=== PATIENT | female | born 1950 | race Hispanic/Latino ===

== ENCOUNTER 2021-07-11 14:43 | Outpatient (CLI) | payer MEDICARE, MEDICAID, SELFPAY ==
--- NOTE | ~2021-07-11 | CT_ITS ---
EXAMINATION: CT abdomen pelvis wo/w con EXAM DATE: 07/11/2021 15:31 INDICATION: Right kidney cancer, nephrectomy. TECHNIQUE: Spiral CT of the abdomen without contrast followed by both abdomen and pelvis with 100 cc intravenous Omnipaque 350. Axial, coronal and sagittal images of the abdomen and pelvis were reviewe d. The dose-length product (DLP) for this examination was 558.17 mGy-cm. The exposure was tailored according to patient size (auto mA exposure control), and iterative reconstruction (ASIR) was used as additional dose reduction technique. There is no prior study for comparison. FINDINGS: Pancreatic tail cystic mass with several thin septations inside, measuring 1.6 x 3.2 cm, un changed. The differential diagnosis includes pseudocyst, intraductal papillary mucinous neoplasm (IPM N), mucinous cystic neoplasm (MCN), serous cystadenoma and neuroendocrine tumor. There is hepatic steatosis without suspicious focal lesion identified. Spleen, adrenal glands are unr emarkable. Gallbladder is unremarkable. No biliary obstruction. Surgical changes from right-sided n ephrectomy, unremarkable nephrectomy bed. No left-sided hydronephrosis, homogeneously enhancing left kidney. There may be small amount of pelvic prolapse. The uterus is retroverted and morphologically n ormal. The bladder is unremarkable. There is no retroperitoneal or pelvic lymphadenopathy. There is mild scattered arteriosclerotic disease. There is right-sided abdominal wall hernia repair. There are no findings to suggest appendicitis. There is moderate scattered colonic diverticulosis. T here is no adjacent inflammatory change to suggest diverticulitis. The stomach and small bowel are un remarkable. There is expected amount of colonic stool. No free intraperitoneal gas. The heart is normal in size. There are no pericardial or pleural effusions. The lung bases are unremarkable. T here are no osteoblastic or osteolytic lesions identified. IMPRESSION: 1. Stable pancreatic tail cystic mass. Consider 2 year follow-up CT abdomen with contrast. 2. Moderate colonic diverticulosis. 3. Hepatic steatosis. 4. No evidence of metastatic disease. Reviewed, dictated and finalized at location B. ING MACHINE REPAIRER IMPRESSION: 1. Stable pancreatic tail cystic mass. Consider 2 year follow-up CT abdomen wi th contrast. 2. Moderate colonic diverticulosis. 3. Hepatic steatosis. 4. No evidence of metastatic disease.
--- NOTE | ~2021-07-11 | XR_ITS ---
EXAMINATION: XR chest 2V DATE: 07/11/2021 15:16 INDICATION: Malignant neoplasm of right kidney. TECHNIQUE: Frontal and lateral views of the chest were obtained. COMPARISON: Chest 2 views 05/04/2019, CT abdomen and pelvis 07/11/2021 FINDINGS: The chest demonstrates clear lungs without pneumonia, pleural effusion, or pneumothorax. Th e heart size is normal. There are surgical clips from right nephrectomy. IMPRESSION: 1. No evidence of metastatic disease. Reviewed, dictated and finalized at location A. ER POWDER BLENDER
[2021-07-11 15:22] LABS: Estimated Glomerular Filt Rate 54
== END 2021-07-11 14:44 | disposition home or self-care (01) ==
PROVIDERS: PCP Family Medicine; Visit Provider Urology
DX: C64.1 Malignant neoplasm of right kidney, except renal pelvis (principal); K57.30 Diverticulosis of large intestine without perforation or abscess without bleeding; K76.0 Fatty (change of) liver, not elsewhere classified
CPT/HCPCS: 71046; 74178; Q9967

== ENCOUNTER 2021-12-08 20:54 | Emergency (ER) | payer MEDICARE, MEDICAID, SELFPAY ==
[2021-12-08] VITALS (8 sets, daily range): BP systolic 137–159; BP diastolic 70–82; PULSE 70–79; RESP 12–19; TEMP 36.4; O2SAT 95–99
--- NOTE | ~2021-12-08 | CT_ITS ---
EXAMINATION: CT brain wo con DATE: 12/08/2021 22:40 INDICATION: Headache and dizziness for 3 days. Nausea and vomiting. TECHNIQUE: Computed tomography (CT) of the head was performed without intravenous contrast. The mA wa s adjusted according to patient size. Iterative reconstruction technique was employed. Exam dose: 60 5.33 mGy-cm total exam DLP. COMPARISON: None FINDINGS: No intracranial mass lesion or hemorrhage or cerebrovascular accident. No midline shift or mass effect. Normal ventricular size. Bilateral carotid siphon internal carotid artery calcifications. Nonspecific diminished attenuation c erebral white matter is likely due to chronic small vessel ischemic changes. No orbital mass lesion. No subdural or epidural hematoma. No fracture or bone destruction of the cranial vault. Included paranasal sinuses and mastoid air cell s are unremarkable. IMPRESSION: No significant abnormality Reviewed, dictated and finalized at Location A. Reviewed, dictated and finalized at location A. IMPRESSION: No significant abnormality
[2021-12-08 21:07] LABS: Glucose Point of Care 184 mg/dl (65-105)
--- NOTE | 2021-12-08 21:13 | ECG_ITS ---
Measurements Intervals [place] Rate: 74 P: 21 VT: 160 QRS: -8 QRSD: 113 T: -9 QT: 403 QTc: 448 Interpretive Statements SINUS RHYTHM LEFT VENTRICULAR HYPERTROPHY ST AND T-WAVE ABNORMALITY, CONSIDER ISCHEMIA ABNORMAL ECG NO PREVIOUS ECG AVAILABLE FOR COMPARISON Electronically Signed On 12-09-2021 11:45:46 CDT by Shaheen Peter M.D.
[2021-12-08 21:55] LABS: Basophils Percent Auto 0.3 % (0.2-1.2); Eosinophils Absolute Auto 0.1 K/mm3 (0-0.3); Eosinophils Percent Auto 0.7 % (0-4.4); Hematocrit 37.4 % (37.0-47.0); Hemoglobin 11.8 g/dL (12.0-15.0); Immature Granulocyte Absolute 0.08 K/mm3 (0.00-0.031); Immature Granulocyte Percent A 0.6 % (0-0.5); Lymphocytes Absolute Auto 1.83 K/mm3 (0.9-3.2); Lymphocytes Percent Auto 14.4 % (18.3-44.2); Mean Corpuscular HGB Conc 31.6 g/dl (32-36); Mean Corpuscular Hemoglobin 27.8 pg (26-34); Mean Corpuscular Volume 88.2 fl (80-100); Monocytes Absolute Auto 0.4 K/mm3 (0.1-0.6); Monocytes Percent Auto 3.1 % (2.6-8.5); Neutrophils Absolute Auto 10.3 K/mm3 (1.3-6.7); Neutrophils Percent Auto 80.9 % (45.5-73.1); Platelet Count Result 276 k/mm3 (150-375); Red Blood Count 4.24 M/mm3 (4.2-5.4); Red Cell Distribution Width 14.5 % (11.5-14.5); White Blood Count 12.7 K/mm3 (4.5-10.0)
--- NOTE | 2021-12-08 22:17 | ED.DIZZY ---
HPI - Dizziness General Chief Complaint: Dizziness <SONG Lobo Last Filed: 12/09/21 02:17> Stated Complaint: dizzy, weak <SONG Lobo Last Filed: 12/09/21 02:17> Time Seen by Provider: 12/08/21 21:08 <SONG Lobo Last Filed: 12/09/21 02:17> Source: patient and interpreter translator <SONG Lobo Last Filed: 12/09/21 02:17> History of Present Illness HPI Narrative: Patient is a 71-year-old, slovak-speaking female with a history of diabetes who presents to the emergency room for evaluation of dizziness over the past 4 days. Patient states the dizziness is most noticeable when she stands up after laying down for long periods of time, occasionally reports a room spinning sensation. She states today she felt nauseous and vomited 4 times, and additionally she has developed a diffuse headache and some ringing in the right ear. Vomit has been nonbloody and nonbilious. She denies any abdominal pain, changes in her stools, blood in her stool, visual changes. She reports some difficulty controlling her blood glucose over the past couple weeks, but her numbers at home have significantly improved after recently starting Jardiance 2 weeks ago. <SONG Lobo Last Filed: 12/09/21 02:17> Related Data Home Medications: Home Medications Medication Instructions Recorded Confirmed alendronate mg PO 12/08/21 atorvastatin 12/08/21 diclofenac sodium PO 12/08/21 glipizide mg 12/08/21 linagliptin [Tradjenta] mg 12/08/21 pantoprazole PO 12/08/21 ropinirole mg 12/08/21 trazodone 12/08/21 <SONG Lobo Last Filed: 12/09/21 02:17> Allergies/Adverse Reactions: Allergies Allergy/AdvReac Type Severity Reaction Status Date / Time Iodinated Contrast Media Allergy Unknown Rash Verified 12/08/21 21:32 Contrast Media Allergy Severe RASH Uncoded 12/02/19 09:46 <Adeline Yang PA-C - Last Filed: 12/09/21 02:17> [facility] Family History Family History: Family History (System 12/02/19 @ 09:46 by Rox Padron) Other Diabetes mellitus <Adeline Yang PA-C - Last Filed: 12/09/21 02:17> Social History Social History: Social History (System 12/02/19 @ 09:46 by Rox Padron) Smoking status: Never smoker Alcohol intake: never <Adeline Yang PA-C - Last Filed: 12/09/21 02:17> Exam Narrative: APPEARANCE: Well appearing, no pain in distress, well-nourished. Head normocephalic and atraumatic. EYES: Fatigable, horizontal nystagmus with EOMs. PERRLA/EOMI, conjunctivae clear NOSE: No nasal drainage EARS: External ear normal in appearance THROAT: Oropharynx is clear. Mucous membranes are moist. NECK: Supple. No adenopathy, no masses. RESPIRATORY: Airway patent, respirations nonlabored. Clear to auscultation bilaterally, no rales, rhonchi, wheezing. CARDIOVASCULAR: Regular rate and rhythm without murmurs, rubs, or gallops. ABDOMINAL: Normoactive bowel sounds. Soft, nontender, nondistended. No rebound tenderness or guarding. MUSCULOSKELETAL: Extremities are warm and well-perfused. Moves all extremities well. No edema. NEURO: Cranial nerves II through XII intact. Hints exam negative. Normal speech. No focal neurologic deficits. Finger to nose normal. No ataxia with gait. SKIN: Skin is warm and dry. No rashes. PSYCHIATRIC: Normal affect/mood. <Adeline Yang PA-C - Last Filed: 12/09/21 02:17> Course MARKETING SALES MANAGER/PA Physician Supervision Patient was seen and evaluated by me. Patient presents with symptoms consistent with vertigo but is not toxic or septic in appearance. Workup reviewed. Nonfocal neuro exam. I concur with the evaluation and treatment plan as outlined by the ANGEL working under my supervision. <Luis Cortez DO - Last Filed: 01/15/22 12:17> Vital Signs Vital signs: Vital Signs Temperature 97.6 F 12/08/21 20:58 Pulse Ra
--- NOTE | 2021-12-08 22:32 | PC.NURSE ---
Patient taken to CT via stretcher.
[2021-12-08] MEDS: ONDANSETRON HCL ODT 4 MG TABLET PO (22:41)
[2021-12-08 22:43] LABS: Alanine Aminotransferase 55 U/L (4-35); Albumin Level 4.2 g/dL (3.5-5.1); Alkaline Phosphatase 119 U/L (38-126); Anion Gap 10 mmol/L (8-16); Aspartate Amino Transferase 42 U/L (14-36); Bilirubin,Total 0.2 mg/dL (0.2-1.3); Blood Urea Nitrogen 21 mg/dL (7-17); Carbon Dioxide 25 mmol/L (22-30); Chloride 102 mmol/L (98-107); Estimated CRCL calculation 51 ml/min; Estimated Glomerular Filt Rate > 60; Glucose 165 mg/dL (65-110); Potassium 4.1 mmol/L (3.4-5.0); Sodium 137 mmol/L (137-145)
[2021-12-08 22:54] LABS: Troponin I < 0.012 ng/mL (0.000-0.034)
[2021-12-08] MEDS: ACETAMINOPHEN 325 MG TABLET 650 MG PO (23:16)
[2021-12-08 23:17] LABS: Add Urine Microscopic? YES; Appearance Urine Clear (Clear); Bilirubin Urine Negative (Negative); Blood Urine Negative (Negative); Color Urine Yellow (Yellow); Glucose Urine UA 3+ mg/dL (Negative); Ketones Urine Negative (Negative); Leukocyte Esterase Ur Negative LEU/UL (Negative); Nitrate Urine Negative (Negative); Protein Urine Negative (Negative); Specific Grav Ur 1.015 (1.001-1.035); Urobilinogen Urine 0.2 mg/dL (<2.0); pH Urine 8.5 (5.0-9.0)
[2021-12-08 23:20] LABS: Mucus Urine Rare /lpf; RBC Urine 0-2 /hpf (0-2); WBC Urine 0-3 /hpf
[2021-12-09] VITALS (15 sets, daily range): BP systolic 113–127; BP diastolic 57–71; PULSE 67–78; RESP 14–21; TEMP 36.4; O2SAT 94–98
[2021-12-09] MEDS: MECLIZINE HCL 12.5 MG TABLET PO (00:56)
[2021-12-09 02:22] LABS: Troponin I < 0.012 ng/mL (0.000-0.034)
== END 2021-12-09 02:44 | disposition home or self-care (01) ==
PROVIDERS: Physician Assistant; Emergency Provider Emergency Medicine; PCP Family Medicine
DX: R42 Dizziness and giddiness (principal); R94.31 Abnormal electrocardiogram [ECG] [EKG]; I51.7 Cardiomegaly
CPT/HCPCS: 36415; 70450; 80053; 81001; 82948; 84484; 85025; 93005; 99284; A9270

== ENCOUNTER 2022-04-21 15:33 | Emergency (ER) | payer MEDICARE, MEDICAID, SELFPAY ==
[2022-04-21 15:42] VITALS: BP 121/69; PULSE 81; RESP 16; TEMP 36.3; O2SAT 100
--- NOTE | 2022-04-21 18:21 | ED.GENADULT ---
HPI - General Adult General Chief complaint: Neck Pain/Injury Stated complaint: neck pain Time Seen by Provider: 04/21/22 17:32 History of Present Illness HPI narrative: 72-year-old female presented to the emergency department for evaluation of a cyst on her left shoulder. Patient states that has been present for a long period of time but was concerned because it had been more painful over the last few weeks. Related Data Home Medications Medication Instructions Recorded Confirmed alendronate 70 mg tablet mg PO 12/08/21 atorvastatin 20 mg tablet 12/08/21 diclofenac sodium 75 mg PO 12/08/21 tablet,delayed release glipizide 10 mg tablet mg 12/08/21 linagliptin 5 mg tablet (Tradjenta) mg 12/08/21 pantoprazole 40 mg tablet,delayed PO 12/08/21 release ropinirole 0.5 mg tablet mg 12/08/21 trazodone 100 mg tablet 12/08/21 Allergies Allergy/AdvReac Type Severity Reaction Status Date / Time Iodinated Contrast Media Allergy Unknown Rash Verified 12/08/21 21:32 Contrast Media Allergy Severe RASH Uncoded 12/02/19 09:46 Review of Systems Review of Systems: CONSTITUTIONAL: Denies fever, chills, or sweats. EYES: Denies visual changes, redness, or discharge. ENT: Denies rhinorrhea, congestion, sore throat, or otalgia. CARDIOVASCULAR: Denies chest pain, palpitations, or edema. RESPIRATORY: Denies cough or dyspnea. GASTROINTESTINAL: Denies abdominal pain, nausea, vomiting, or diarrhea. GENITOURINARY: Denies dysuria or hematuria. SKIN: Cyst on left shoulder MUSCULOSKELETAL: Denies back pain, joint pain, or myalgia. NEUROLOGIC: Denies headache, numbness, or weakness. [facility] Family History Family History (System 12/02/19 @ 09:46 by Rox Padron) Other Diabetes mellitus Social History Social History (System 12/02/19 @ 09:46 by Rox Padron) Smoking status: Never smoker Alcohol intake: never Exam Narrative: APPEARANCE: Well appearing, no pain, no distress, well-nourished. HEAD: normocephalic, atraumatic. EYES: PERRLA/EOMI, conjunctivae clear. NOSE: Normal no drainage EARS:TMS clear with good light reflex. MUSCULOSKELETAL: Moves all extremities. Strength/ROM intact, No edema, No calf tenderness. NEURO: Alert. Cranial nerves II through XII intact. Grossly intact SKIN: Warm, dry. Normal Color. Suspected fatty cyst on left shoulder. No localized erythema. No tenderness to palpation. No fluctuance. Course Course Emergency Course: Patient's son acted as mechanical applications engineer and declined the use of the translating iPad. Suspect a lipoma. No suspicion for abscess. Patient was referred to plastic surgery for definitive treatment and removal of the suspected lipoma. Patient and family were comfortable to plan for discharge and close follow-up. Vital Signs Vital signs: Vital Signs Temperature 97.3 F L 04/21/22 15:42 Pulse Rate 81 04/21/22 15:42 Respiratory Rate 16 04/21/22 15:42 Blood Pressure 121/69 04/21/22 15:42 Pulse Oximetry 100 04/21/22 15:42 Oxygen Delivery Room Air 04/21/22 15:42 Temperature 97.3 F L 04/21/22 15:42 Pulse Rate 81 04/21/22 15:42 Respiratory Rate 16 04/21/22 15:42 Blood Pressure 121/69 04/21/22 15:42 Pulse Oximetry 100 04/21/22 15:42 Oxygen Delivery Room Air 04/21/22 15:42 Medical Decision Making Vital Signs Vital Signs: Vital Signs Temperature 97.3 F L 04/21/22 15:42 Pulse Rate 81 04/21/22 15:42 Respiratory Rate 16 04/21/22 15:42 Blood Pressure 121/69 04/21/22 15:42 Pulse Oximetry 100 04/21/22 15:42 Oxygen Delivery Room Air 04/21/22 15:42 Temperature 97.3 F L 04/21/22 15:42 Pulse Rate 81 04/21/22 15:42 Respiratory Rate 16 04/21/22 15:42 Blood Pressure 121/69 04/21/22 15:42 Pulse Oximetry 100 04/21/22 15:42 Oxygen Delivery Room Air 04/21/22 15:42 Discharge Plan Discharge Clinical Impression: Cyst Patient Disposition: Home, Self-Care Condition: Stable Instr
== END 2022-04-21 18:37 | disposition home or self-care (01) ==
PROVIDERS: Emergency Provider Emergency Medicine; PCP Family Medicine
DX: L72.9 Follicular cyst of the skin and subcutaneous tissue, unspecified (principal); Z79.84 Long term (current) use of oral hypoglycemic drugs
CPT/HCPCS: 99281

== ENCOUNTER 2022-08-14 10:42 | Outpatient (CLI) | payer MEDICARE, MEDICAID, SELFPAY ==
--- NOTE | ~2022-08-14 | XR_ITS ---
EXAMINATION: XR chest 2V DATE: 08/14/2022 11:02 INDICATION: Malignant neoplasm of the right kidney excepting the renal pelvis. TECHNIQUE: PA and lateral views of the chest were obtained. COMPARISON: Chest radiograph and CT abdomen and pelvis dated 07/11/2021 FINDINGS: Unchanged minimal right middle lobe atelectasis/scarring near the costophrenic angle. No new airspace opacities, pulmonary edema, pleural effusion or pneumothorax. The cardiomediastinal silhouette is no rmal. Paraspinal surgical clips in the right upper quadrant consistent with prior right nephrectomy. IMPRESSION: 1. Minimal chronic right middle lobe atelectasis/scarring near the costophrenic angle. Reviewed, dictated and finalized at location L. PROGRAMMER
--- NOTE | ~2022-08-14 | CT_ITS ---
CT of the Abdomen and Pelvis: Indication: Malignant neoplasm right kidney Technique: 2.5 mm axial scans were obtained through the abdomen and pelvis prior to and following in travenous administration of 100 cc of Omnipaque 350. Dose reduction technique was used on this scan b y utilizing automated exposure control and iterative reconstruction technique. The dose-length produc t (DLP) was 524.10 mGy-cm. COMPARISON: 07/11/2021 and 05/04/2019 Findings: Scans through the lung bases are unremarkable. The liver, spleen, gallbladder, adrenals and left kidney are within normal limits. Patient is status post right nephrectomy. Stable cystic mass at the pancreatic tail. No evidence of aortic aneurysm. No lymphadenopathy. No bowel obstruction or bowel wall thickening. There is no evidence to suggest acute appendicitis. Images through the pelvis were performed. Urinary bladder unremarkable. No adnexal mass evident. No a scites. Impression: Status post left nephrectomy. No evidence of recurrent or suspicious renal/ mass lesion. Stable cystic mass in the pancreatic tail. Stability over this time interval is compatible with a jimmy ign/low malignant potential lesion. Reviewed, dictated and finalized at location . MAKER HELPER Impression: Status post left nephrectomy. No evidence of recurrent or suspicious renal/ m ass lesion. Stable cystic mass in the pancreatic tail. Stability over this time interval is compatible with a benign/low malignant potential lesion.
[2022-08-14 11:13] LABS: Estimated Glomerular Filt Rate > 60
== END 2022-08-14 10:43 | disposition home or self-care (01) ==
PROVIDERS: PCP Family Medicine; Visit Provider Urology
DX: C64.1 Malignant neoplasm of right kidney, except renal pelvis (principal)
CPT/HCPCS: 71046; 74178; Q9967

== ENCOUNTER → 2024-08-13 10:55 | Emergency (ER) | payer MEDICARE, MEDICAID, SELFPAY ==
--- NOTE | ~2024-08-13 | XR_ITS ---
XR knee LT min 4V 08/13/2024 12:12 INDICATION: Left knee pain after fall PROCEDURE: 5 views left knee COMPARISON: No prior studies for comparison. FINDINGS: Fracture, dislocation or subluxation is not identified. The soft tissues appear within norm al limits. No foreign bodies are identified. IMPRESSION: 1: NO ACUTE BONE OR JOINT ABNORMALITY IDENTIFIED. Reviewed, dictated and finalized at location B. ALT PAVING MACHINE OPERATOR
--- NOTE | ~2024-08-13 | XR_ITS ---
XR elbow LT min 3V 08/13/2024 12:11 INDICATION: Left elbow pain after fall PROCEDURE: 4 views left elbow COMPARISON: No prior studies for comparison. FINDINGS: Fracture, dislocation or subluxation is not identified. The soft tissues appear within norm al limits. No foreign bodies are identified. IMPRESSION: 1: NO ACUTE BONE OR JOINT ABNORMALITY IDENTIFIED. Reviewed, dictated and finalized at location B. GE MILL OPERATOR
--- NOTE | ~2024-08-13 | CT_ITS ---
EXAMINATION: CT chst ab pel thor lum wo DATE: 08/13/2024 11:54 INDICATION: Left chest, rib and hip pain post fall TECHNIQUE: Computed tomography (CT) of the chest, abdomen, pelvis as well as of the thoracic and lumb ar spine was performed with 100 mL Omnipaque-350 intravenous contrast. Automated exposure control and iterative reconstruction technique were employed. The dose-length product was 378.70 mGy-cm. COMPARISON: Chest radiograph and CT abdomen and pelvis dated 08/14/2022 FINDINGS: CHEST CT: With minimal discoid atelectasis in the right middle lobe. No pneumonia, pulmonary edema, pulmonary h emorrhage, pleural effusion or pneumothorax. Heart size is normal. Aortic valve calcification. No per icardial effusion. Thoracic aorta is normal in caliber. No pathologically enlarged thoracic lymphaden opathy. ABDOMEN/PELVIS CT: Liver, gallbladder, spleen, bilateral adrenal glands are normal. Status post right nephrectomy with s urgical clips the right renal fossa. Couple nonobstructing small stones in a calyx at the mid left ki dney. No interval change in a 2.9 x 1.4 cm cystic lesion at the tail of the pancreas. Moderate scatte red] without adjacent inflammatory change to suggest diverticulitis. No bowel obstruction. Bladder, u terus and left adnexa are unremarkable. Unchanged 1 cm rim calcified cyst versus heterotopic ossicle at the right adnexa. Postoperative change of prior right pelvic ventral versus beginning hernia. Smal l fat-containing right inguinal hernia. No free intraperitoneal gas or fluid. No pathologically enlar ged abdominal or pelvic lymphadenopathy. Mild bilateral sacral iliac osteoarthritis. No pelvic fractu res. THORACIC SPINE CT: Acute appearing compression fracture at T11 with minimal anterior vertebral body height loss but with buckling of the cortex along the anterior wall which is new since the prior studies. Unchanged mild anterior wedging at T7 and T8. Mild thoracic spondylosis. No central canal stenosis. LUMBAR SPINE CT: Alignment is normal. Vertebral body heights are normal. No fracture. Disc heights are normal. Mild di sc bulges with mild central canal stenosis at L4-L5 and L5-S1. Severe left-sided and moderate right-s ided lumbar facet osteoarthritis. Additional moderate facet osteoarthritis bilaterally at L4-L5 with mild facet osteoarthritis and more cephalad lumbar spine. Foraminal stenosis, mild to moderate bilate rally at L5-S1, mild bilaterally at L4-L5 and minimal bilaterally at L3-L4. IMPRESSION: 1. Acute T11 compression fracture with minimal anterior vertebral body height loss. No other acute os seous abnormality in the chest, abdomen or pelvis. 2. No vascular or visceral organ injury in the chest, abdomen or pelvis. 3. No interval change in a likely benign 2.9 x 1.4 cm cystic lesion at the tail the pancreas. Reviewed, dictated and finalized at location A. ORATE QUALITY MANAGER IMPRESSION: 1. Acute T11 compression fracture with minimal anterior vertebral body height l oss. No other acute osseous abnormality in the chest, abdomen or pelvis. 2. No vascular or visceral organ injury in the chest, abdomen or pelvis. 3. No interval change in a likely benign 2.9 x 1.4 cm cystic lesion at the tail the pancreas.
--- NOTE | ~2024-08-13 | XR_ITS ---
XR foot LT min 3V 08/13/2024 12:12 Indication: Left foot pain after fall Procedure: 4 views left foot Comparison: No prior studies for comparison. Findings: No fracture, subluxation or dislocation. There is mild polyarticular osteoarthritis. Osteop enia. No focal soft tissue abnormality. No foreign bodies. Impression: 1: No acute fracture. Reviewed, dictated and finalized at location B. NO BEVERAGE SERVER Impression: 1: No acute fracture.
[2024-08-13 10:56] VITALS: BP 143/54; PULSE 84; RESP 16; TEMP 36.4; O2SAT 99
[2024-08-13 11:03] VITALS: BP 130/68; PULSE 82; RESP 18; TEMP 36.6; O2SAT 95
[2024-08-13 11:24] VITALS: BP 138/68; PULSE 68; RESP 18; TEMP 36.6; O2SAT 95
--- NOTE | 2024-08-13 11:33 | ED.FALL ---
HPI - Fall General Chief Complaint: Fall Stated Complaint: fell 08/08 having L sided waist pain Time Seen by Provider: 08/13/24 11:10 Source: patient Mode of arrival: ambulatory Limitations: no limitations and language barrier History of Present Illness HPI Narrative: Patient is a 74 y/o female who presents the ED with report of a fall. Patient is primarily Pashto speaking. [employer] balloon sander was utilized for assistance with translation. Patient reports she fell on Saturday in a restaurant bathroom after tripping over a table. Fell onto her left side. Did not hit her head or lose consciousness. C/o pain to her L elbow, L upper/lateral chest wall, L hip, L knee, L foot, lower back. Has been able to ambulate. Has been taking advil for the pain with some relief. Denies abdominal pain, N/V, dizziness/lightheadedness, SOB, numbness, bowel or bladder incontinence. Related Data Home Medications ?Medication ?Instructions ?Recorded ?Confirmed ?Last Taken ?Type alendronate 70 mg tablet mg PO 12/08/21 Unknown History atorvastatin 20 mg tablet 12/08/21 Unknown History diclofenac sodium 75 mg PO 12/08/21 Unknown History tablet,delayed release glipizide 10 mg tablet mg 12/08/21 Unknown History linagliptin 5 mg tablet (Tradjenta) mg 12/08/21 Unknown History pantoprazole 40 mg tablet,delayed PO 12/08/21 Unknown History release ropinirole 0.5 mg tablet mg 12/08/21 Unknown History trazodone 100 mg tablet 12/08/21 Unknown History Allergies Allergy/AdvReac Type Severity Reaction Status Date / Time Iodinated Contrast Media Allergy Unknown Rash Verified 12/08/21 21:32 Contrast Media Allergy Severe RASH Uncoded 12/02/19 09:46 Review of Systems Review of Systems: All systems reviewed & are unremarkable except as noted in HPI. All systems reviewed & are unremarkable except as noted in HPI and below PMFSH Family History Family History Other Diabetes mellitus Social History Social History Smoking status: Never smoker Alcohol intake: never Exam Narrative: GENERAL: Well appearing, well-nourished, non-toxic, in no acute distress. HEAD: Normocephalic, atraumatic. RESPIRATORY: Airway patent, respirations nonlabored. Clear to auscultation bilaterally, no rales, rhonchi, wheezing. CARDIOVASCULAR: Regular rate and rhythm without murmurs, rubs, or gallops. Peripheral pulses intact. ABDOMINAL: Soft, nontender, nondistended. Normoactive BS. MUSCULOSKELETAL: Moves all extremities. No gross deformities. Mild tenderness to palpation over left lateral inferior hip joint, left proximal forearm with small area of ecchymosis, left upper/ lateral anterior chest wall. No palpable bony deformities. Mild tenderness to palpation along left 5th metatarsal without swelling. No significant tenderness over medial or lateral malleoli of left ankle. Mild tenderness palpation diffusely throughout upper lumbar region, without palpable bony deformities or step-offs. Sensation intact. SKIN: Warm, dry, normal color. NEURO: A&O X3. Speech clear. Cranial nerves II-XII grossly intact. Steady gait. No ataxic movements. PSYCHIATRIC: Appropriate mood and affect. Normal interaction. Course Vital Signs Vital signs: Vital Signs Temperature 97.6 F 08/13/24 10:56 Pulse Rate 84 08/13/24 10:56 Respiratory Rate 16 08/13/24 10:56 Blood Pressure 143/54 H 08/13/24 10:56 Pulse Oximetry 99 08/13/24 10:56 Temperature 97.9 F 08/13/24 11:24 Pulse Rate 68 08/13/24 11:24 Respiratory Rate 18 08/13/24 11:24 Blood Pressure 138/68 08/13/24 11:24 Pulse Oximetry 95 08/13/24 11:24 Oxygen Delivery Room Air 08/13/24 11:03 MDM - Fall MDM Narrative Medical decision making narrative: Patient presented to ED several days status post ground level mechanical fall, complaining of pain to her left side. Vital signs are stable upon arrival. Patient is in no acute distress. Neurovascularly intact. X-rays of left elbow, left knee, left foot negative. CT of chest/ abdomen/ pelvis showing: Acute T11 compression fracture with minimal anterior vertebral body height loss. Consistent with exam. No other injuries noted on CT imaging. No evidence of cord compression or cauda equina. Patient denying any red flag sx's. Will have patient be fitted for TLSO brace through [facility]. Will refer to neurosurgery for further eval. Will Rx pain medication for home. Patient in agreement with plan. Feels comfortable going home with back brace. Given strict return precautions. She agrees with plan. Discharged in stable condition. [facility] in the ED to fit patient for brace. Medical Records Attestation: I reviewed the patient's medical records. Imaging Data Attestation: I personally reviewed and interpreted this imaging study as follows: Radiologist's impression: ITS Impressions Elbow X-Ray 08/13/24 12:14 IMPRESSION: 1: NO ACUTE BONE OR JOINT ABNORMALITY IDENTIFIED. Knee X-Ray 08/13/24 12:15 IMPRESSION: 1: NO ACUTE BONE OR JOINT ABNORMALITY IDENTIFIED. Foot X-Ray 08/13/24 12:16 Impression: 1: No acute fracture. Chest/Abdomen/Pelvis/Spine CT 08/13/24 12:30 IMPRESSION: 1. Acute T11 compression fracture with minimal anterior vertebral body height loss. No other acute osseous abnormality in the chest, abdomen or pelvis. 2. No vascular or visceral organ injury in the chest, abdomen or pelvis. 3. No interval change in a likely benign 2.9 x 1.4 cm cystic lesion at the tail the pancreas. Discharge Plan Discharge Clinical Impression: Fall from ground level Compression fracture of T11 vertebra Qualifiers: Encounter type: initial encounter Qualified Code(s): S22.080A - Wedge compression fracture of T11-T12 vertebra, initial encounter for closed fracture Chest wall contusion Qualifiers: Encounter type: initial encounter Laterality: left Qualified Code(s): S20.212A - Contusion of left front wall of thorax, initial encounter Contusion of left foot Qualifiers: Encounter type: initial encounter Qualified Code(s): S90.32XA - Contusion of left foot, initial encounter Patient Disposition: Home, Self-Care Condition: Stable Instructions: Antibiotic Form, Vertebral Compression Fracture (ED), Chest Wall Pain (ED) Additional Instructions: Wear back brace at all times when out of bed. You do not have to wear this when bathing or in in bed, unless it is more comfortable for you. Follow-up with neurosurgery for further evaluation. Call office to make appointment. Continue Tylenol and Ibuprofen as needed for pain. Utilize tramadol as needed for more severe pain. You may use ice/heat, lidocaine patches to area of pain. Take muscle relaxers as needed and prescribed. Recommend taking these at night as they may cause sedation. Do not drive, operate heavy machinery, drink alcohol while on muscle relaxers as this may cause further sedation. Avoid use of muscle relaxers and tramadol together as these can both cause sedation. Return to the ED if you experience worsening or severe pain, recurrent injury, numbness in groin or legs, going to the bathroom without meaning to, unable to keep down food or drink, difficulty breathing, or any other symptoms of concern. Patient Language: Pashto Prescriptions: New tramadol 50 mg tablet 50 mg PO Q6H PRN (Reason: pain) Qty: 15 0RF lidocaine 5 % adhesive patch,medicated 1 patch topical DAILY Qty: 15 0RF Rx Instructions: leave on most painful area for up to 12 hrs cyclobenzaprine 5 mg tablet 5 mg PO TID PRN (Reason: muscle spasm) Qty: 10 0RF No Action atorvastatin 20 mg tablet glipizide 10 mg tablet alendronate 70 mg tablet PO trazodone 100 mg tablet pantoprazole 40 mg tablet,delayed release (DR/EC) PO ropinirole 0.5 mg tablet diclofenac sodium 75 mg tablet,delayed release (DR/EC) PO Tradjenta 5 mg tablet Follow-up/Referrals: Guero,Shirley Ogden MD [Primary Care Provider] - Manav Adams MD [Physician] - (NEUROSURGERY) Time of Disposition: 14:35
== END | disposition home or self-care (01) ==
PROVIDERS: Emergency Provider Physician Assistant; PCP Family Medicine
DX: S22.080A Wedge compression fracture of T11-T12 vertebra, initial encounter for closed fracture (principal); S20.212A Contusion of left front wall of thorax, initial encounter; S90.32XA Contusion of left foot, initial encounter; E11.9 Type 2 diabetes mellitus without complications; W01.0XXA Fall on same level from slipping, tripping and stumbling without subsequent striking against object, initial encounter
CPT/HCPCS: 71250; 72128; 72131; 73080; 73564; 73630; 74176; 99284

== ENCOUNTER 2025-06-21 13:06 | Outpatient (CLI) | payer MEDICARE, SELFPAY ==
--- NOTE | ~2025-06-21 | XR_ITS ---
EXAMINATION: XR abdomen/kub 1V, 06/21/2025 13:27 CDT HISTORY: Calculus of kidney, RIGHT KIDNEY REMOVED 8 YEARS AGO COMPARISON: No comparisons available. Technique: 3 view. Findings: Bowel gas pattern unremarkable. No obstruction. Moderate fecal content obscures evaluation, no renal calculi definitely identified No acute osseous abnormality. Impression: 1. No acute abnormality. Reviewed, dictated and finalized at location P. Impression: 1. No acute abnormality.
--- OUTSIDE RECORDS SUMMARY | 2025-06-21 14:39 | XMS_ITS | Clinical Summary ---
Author Organization [facility] Address [address] [place] [address] Care Team Providers Care Parts Counter Clerk Name Role Phone Shirley Jack MD Primary Care Provider + Allergies Active Allergy Reactions Criticality Noted Date Comments Iodinated Contrast Media Other (See Comments) 1 unknown Medications glipiZIDE (GLUCOTROL) 5 mg tablet Take 5 mg by mouth 2 times daily with meals. Active vit B cmplx 3-FA-Vit C-Biotin (RENAVITE-RX RX) 1-60-300 mg-mg-mcg Tablet Take 1 Tablet by mouth daily. Active pantoprazole (PROTONIX) 40 mg Tablet, Delayed Release (E.C.) Take 1 Tablet (40 mg) by mouth daily. 30 Tablet 2 06/25/2017 Active Active Problems Problem Noted Date Diagnosed Date Renal cell carcinoma of right kidney 06/24/2017 Pancreatic mass 06/24/2017 Family History Relation Name Status Comments Father Mother Sister Alive Social History Tobacco Use Types Packs/Day Years Used Date Smoking Tobacco: Never Alcohol Use Standard Drinks/Week Comments No 0 (1 standard drink = 0.6 oz pur e alcohol) Comments No Sex and Gender Information Value Date Recorded Sex Assigned at Not on file Legal Sex Female 9:08 AM CDT Gender Identity Not on file Sexual Orientation Not on file Last Filed Vital Signs Vital Sign Reading Time Taken Comments Blood Pressure 197/98 06/24/2017 1:43 PM CDT Pulse 92 06/24/2017 1:43 PM CDT Temperature 36.7 C (98 F) 06/24/2017 1:43 PM CDT Respiratory Rate 16 06/24/2017 1:43 PM CDT Oxygen Saturation - - Inhaled Oxygen Concentration - - Weight 63.3 kg (139 lb 9.6 oz) 06/24/2017 1:43 P M CDT Height 152.4 cm (5') 06/24/2017 1:43 PM CDT Body Mass Index 27.26 06/24/2017 1:43 PM CDT Plan of Treatment Health Maintenance Due Date Last Done Comments DTAP/TDAP/TD VACCINES (1 - Tdap) 02/28/1967 PNEUMOCOCCAL VACCINE 50+ YEARS (1 of 1 - PCV) 02/28/19 98 ZOSTER VACCINE (1 of 2) 02/28/1998 OSTEOPOROSIS SCREENING 02/28/2013 RSV VACCINE (60+ or ) (1 - 1-dose 75+ series) 02/28/2023 INFLUENZA VACCINE (#1) 2025 Insurance MEDICARE PART A AND B Care Teams Parts Counter Clerk Relationship Specialty Start Date End Date Shirley Jack MD [address] [place] [address] PCP - General Family Practice 06/24/17
== END 2025-06-21 13:07 | disposition home or self-care (01) ==
PROVIDERS: PCP Nurse Practitioner Family; Visit Provider Urology
DX: N20.0 Calculus of kidney (principal)
CPT/HCPCS: 74018